=== PATIENT | male | born 1960 | race Two or more races ===

== ENCOUNTER 2021-03-23 05:09 | Inpatient (IN) | payer SELFPAY ==
[2021-03-23] VITALS (38 sets, daily range): BP systolic 62–163; BP diastolic 38–113
[~2021-03-23] VITALS: Ht 172.7 cm; Wt 201.8 kg
--- NOTE | 2021-03-23 05:09 | NUR ---
LUIS E RA FROM HOME FOR SEVERE SOB. PT ON CPAP BY EMS UPON ARRIVAL. PT DYSPNIC, TACHYNEIC UPON ARRIVAL, UNABLE TO SPEAK IN COMPLETE SENTENCES. PT IMMEDIATELY PLACED IN ER GURNEY AND CONNECTED TO MONITOR. DR ARECHIGA AND RT AT BEDSIDE.
--- NOTE | 2021-03-23 05:12 | NUR ---
RT AT BEDSIDE. PT PLACED ON BIPAP 18/5 RR24 FIO2 100%
[2021-03-23] MEDS ORDERED: FUROSEMIDE 40 MG/4 ML VIAL ONE ×2 (05:19→09:03)
[2021-03-23] MEDS ORDERED: NTG 50 MG/D5W250 ML BOTTL 250 ML IV ONE (05:20)
[2021-03-23] MEDS ORDERED: ALBUTEROL FS 2.5 MG/3 ML VIAL.NEB ONE (05:22)
[2021-03-23] MEDS ORDERED: IPRATROPIUM NEB FS 0.5 MG/2.5 ML AMPUL.NEB ONE (05:22)
[2021-03-23] MEDS ORDERED: IPRATROPIUM NEB FS 0.5 MG/2.5 ML AMPUL.NEB NEB ONE (05:30)
[2021-03-23] MEDS ORDERED: FUROSEMIDE 40 MG/4 ML VIAL IV ONE (05:30)
[2021-03-23] MEDS ORDERED: NTG 50 MG/D5W250 ML BOTTL 250 ML IV PRN (05:30)
[2021-03-23] MEDS ORDERED: ASPIRIN 325 MG TABLET PO ONE (05:30)
[2021-03-23] MEDS ORDERED: ALBUTEROL FS 2.5 MG/3 ML VIAL.NEB NEB ONE (05:30)
[2021-03-23] MEDS ORDERED: ASPIRIN 325 MG TABLET ONE (05:33)
[2021-03-23 05:36] LABS: BASOPHILS # (AUTO) 0.1 K/uL (0.0-0.2); BASOPHILS % (AUTO) 0.4 % (0.0-2.0); EOSINOPHILS % (AUTO) 0.1 % (0.0-6.0); HEMATOCRIT 43 % (39-51); HEMOGLOBIN 13.5 g/dL (13.5-17.5); LYMPHOCYTES # (AUTO) 2.4 K/uL (0.8-4.8); LYMPHOCYTES % (AUTO) 13.8 % (20.0-44.0); MEAN CORPUSCULAR HGB CONC 32 g/dl (31.0-36.0); MEAN CORPUSCULAR VOLUME 83 fL (80-96); MONOCYTES # (AUTO) 1.4 K/uL (0.1-1.30); MONOCYTES % (AUTO) 8.2 % (2.0-12.0); NEUTROPHILS # (AUTO) 13.2 K/uL (1.8-8.9); NEUTROPHILS % (AUTO) 77.5 % (43.0-81.0); PLATELET COUNT (AUTO) 378 K/uL (150-450); RED BLOOD CELL COUNT(AUTO) 5.15 MIL/uL (4.5-6.0)
[2021-03-23 05:45] LABS: ABG BASE EXCESS -2.2 mmol/L; ABG OXYGEN SATURATION 97.3 % (92.0-98.5); ABG PCO2 63.3 mmHg (35.0-45.0); ABG PH 7.241 (7.350-7.450); ABG PO2 121.7 mmHg (75.0-100.0); COHb 0.5 % (0.5-1.5); MetHb 0.3 % (0.0-1.5); O2Hb 96.5 % (94.0-97.0); SITE, ABG Left Radial; VENT MODE, BG ST 18/5 24 100%
[2021-03-23] MEDS ORDERED: DILTIAZEM HCL 25 MG IV ONE ×2 (05:57→06:09)
[2021-03-23] MEDS ORDERED: CEFTRIAXONE 1 G VIAL ONE (05:57)
[2021-03-23] MEDS ORDERED: AZITHROMYCIN 500 MG VIAL ONE (05:57)
[2021-03-23] MEDS ORDERED: CEFTRIAXONE 1GM BAG (ER ONLY) 50 ML IV ONE (06:00)
[2021-03-23] MEDS ORDERED: AZITHROMYCIN 500 MG in IV D5W 250 ML IV ONE (06:00)
[2021-03-23] MEDS ORDERED: DILTIAZEM HCL 25 MG IV IV ONE (06:00)
[2021-03-23] MEDS ORDERED: ONDANSETRON HCL/PF 4 MG/2 ML VIAL IV ONE (06:00)
[2021-03-23] MEDS ORDERED: MORPHINE SULFATE INJ 10 MG/ML DISP.SYRIN IV ONE (06:00)
--- NOTE | 2021-03-23 06:00 | NUR ---
MRSA SWAB COLLECTED AND SENT TO LAB. PATIENT'S BELONGINGS LIST DONE.
[2021-03-23 06:01] LABS: CALCIUM, SERUM 8.3 mg/dL (8.5-10.1); CARBON DIOXIDE 30 mmol/L (21-32); CHLORIDE 97 mmol/L (98-107); CREATININE 1.9 mg/dL (0.6-1.3); GLUCOSE 216 mg/dL (74-106); SODIUM SERUM 136 mmol/L (136-145); UREA NITROGEN, BLOOD 27 mg/dL (7-18)
[2021-03-23 06:04] LABS: D-DIMER 3.08 mg/L(FEU (0.17-0.50)
[2021-03-23] MEDS ORDERED: DILTIAZEM HCL 50 MG IV ONE (06:09)
[2021-03-23 06:14] LABS: ALANINE AMINOTRANSFERASE 31 U/L (12-78); ALBUMIN 3.1 g/dL (3.4-5.0); ALKALINE PHOSPHATASE 70 U/L (46-116); ASPARTATE AMINOTRANSFERASE 27 U/L (15-37); BILIRUBIN,DIRECT 0.5 mg/dL (0.0-0.2); BILIRUBIN,TOTAL 0.9 mg/dL (0.2-1.0); TOTAL PROTEIN, SERUM 8.7 g/dL (6.4-8.2)
[2021-03-23] MEDS ORDERED: MORPHINE SULFATE INJ 4 MG/ML DISP.SYRIN ONE (06:19)
[2021-03-23] MEDS: DILTIAZEM HCL IV 125 MG in IV NS 0.9% 100 ML IV PRN ×3 (06:20→06:30)
--- NOTE | 2021-03-23 06:25 | NUR ---
lactic acid 4.3
[2021-03-23] MEDS ORDERED: MORPHINE SULFATE INJ 2 MG/ML DISP.SYRIN IV ONE (06:30)
--- NOTE | 2021-03-23 06:39 | NUR ---
RT NOTE LATE ENTRY. RT CALLED TO BEDSIDE FOR PATIENT COMPLAINING OF SEVERE SOB. PATIENT PLACED ON BIPAP WITH LARGE FACE MASK ON SETTINGS OF S/T 18/5 RR24 FIO2 100% PER MD. PATIENT GIVEN TX. ALARMS ARE SET AND AUDIBLE. BIPAP IS PLUGGED INTO RED OUTLET. WAITING FOR FURTHER ORDERS. EMERGENCY EQUIPMENT AT PATIENT BEDSIDE. Addendum: 03/23/21 at 0643 by JEFFY SALOMON RT Amended: Links added.
[2021-03-23] MEDS ORDERED: ONDANSETRON HCL/PF 4 MG/2 ML VIAL ONE (06:46)
[2021-03-23 06:55] LABS: NEUTROPHILS % (MANUAL) 77 (42-76)
[2021-03-23 06:56] LABS: BAND % (MANUAL) 2 % (0.0-5.0); LYMPHOCYTES % (MANUAL) 18 % (16-48); MONOCYTES % (MANUAL) 3 % (0-11.0)
[2021-03-23] MEDS ORDERED: ONDANSETRON HCL/PF 4 MG/2 ML VIAL IVP PRN (07:00)
[2021-03-23] MEDS ORDERED: DILTIAZEM HCL IV 125 MG in IV NS 0.9% 100 ML IV PRN (07:00)
[2021-03-23] MEDS ORDERED: MAG HYDROX/AL HYDROX/SIMETH 30 ML UDC PO PRN (07:00)
[2021-03-23] MEDS ORDERED: MAGNESIUM HYDROXIDE 30 ML UDC PO PRN (07:00)
[2021-03-23] MEDS ORDERED: CEFTRIAXONE 1 G in IV D5W 50 ML IV SCH (07:00)
[2021-03-23] MEDS ORDERED: ACETAMINOPHEN 325 MG TABLET PO PRN (07:00)
[2021-03-23] MEDS ORDERED: ZOLPIDEM TARTRATE 5 MG TABLET PO PRN (07:00)
[2021-03-23] MEDS ORDERED: Z GUARD REMEDY 2 OZ OINT TP PRN (07:00)
--- NOTE | 2021-03-23 07:30 | NUR ---
Bhargav prajapati in ED - 03/23/21 at 0755 by PUNEET ASSESSED PT ON BED ASLEEP EASILY AROUSABLE, NOT IN RESPIRATORY DISTRESS, V/S STABLE, KEPT RESTED AND COMFORTABLE. WILL CONTINUE TO MONITOR.
[2021-03-23] MEDS ORDERED: METO25TA4 PO (07:46)
[2021-03-23] MEDS ORDERED: ASPI-1169 PO (07:46)
[2021-03-23] MEDS ORDERED: ELVI1TAB3 PO (07:46)
[2021-03-23] MEDS ORDERED: FURO-144 PO (07:46)
[2021-03-23] MEDS ORDERED: POTA-88 PO (07:46)
--- NOTE | 2021-03-23 08:20 | NUR ---
RECEIVED THE PATIENT IN ER BED #8. ON BIPAP. TOLERATING BIPAP WELL. CARDIZEM INFUSING AT 15 MG/HR AND NITRO 15 MCG/MIN. VSS. THE PATIENT ALERT AND ORIENTED X4. ATTACHED TO THE MONITOR. WILL CONTINUE TO MONITOR THE PATIENT.
--- NOTE | 2021-03-23 08:59 | NUR ---
Administered Heparin 5000 unit per order however, unable to document in eMar becuase the order was discontinued after the after administering the medication and before i could document in eMar. The Heparin admin was witnessed by nurse Kevin.
[2021-03-23] MEDS ORDERED: FUROSEMIDE 40 MG/4 ML VIAL IV SCH (09:00)
[2021-03-23] MEDS ORDERED: HEPARIN SODIUM, PORCINE 5000 UNITS/1 ML VIAL SQ SCH (09:00)
[2021-03-23] MEDS ORDERED: ASPIRIN EC 81 MG TABLET.DR PO ONE (09:03)
[2021-03-23] MEDS ORDERED: HEPARIN SODIUM, PORCINE 5000 UNITS/1 ML VIAL ONE (09:03)
[2021-03-23] MEDS ORDERED: PANTOPRAZOLE 40 MG TABLET.DR PO ONE (09:03)
--- NOTE | 2021-03-23 09:17 | NUR ---
RT AT THE BEDSIDE
--- NOTE | 2021-03-23 09:19 | NUR ---
CURRENT SETTINGS ARE RR26 IPAP 18 EPAP 5 FIO2 80% PS 13
[2021-03-23] MEDS: PANTOPRAZOLE 40 MG TABLET.DR PO SCH (09:28)
[2021-03-23] MEDS: ASPIRIN EC 81 MG TABLET.DR PO SCH (09:28)
--- NOTE | 2021-03-23 10:26 | NUR ---
CARDIZEM 15MG/HR INFUSING PER ORDER. VSS . WILL CONTINUE TO MONITOR THE PATIENT.
--- NOTE | 2021-03-23 10:45 | NUR ---
PROGRAM COORDINATOR EXECUTIVE EDUCATION NOTE OBESE PT BROUGHT TO ICU ON BIPAP SETTINGS: 25/5, RATE 12, FIO2 80%, SPO2 HIGH 86-89%, LABORED BREATHING NOTED. RT BEDSIDE. PT A/Ox4, DENIES PAIN, IS ANXIOUS. PT ON BEDSIDE TELE AFIB WITH RVR, ON CARDIZEM DRIP @ 5 MG/HR RUNNING IN RT HAND. PT RT AND LT HAND #20 BOTH FLUSHED AND INTACT. PT SKIN INTACT. BLE CELLULITIS NOTED. PT TAKES OFF BIPAP OCCASIONALLY, PT EDUCATION DONE. ALL PT SAFETY PRECAUTIONS IN PLACE, AWAITING FURTHER ORDERS. MONITORING PT CLOSELY
--- NOTE | 2021-03-23 10:50 | NUR ---
pt. stable bipap changes done per Dr. Escobar order. continue to monitor pt. ABG will be repeated. Addendum: 03/23/21 at 1643 by JOEL HINES RT Amended: Links added.
--- NOTE | 2021-03-23 10:55 | NUR ---
REPORT GIVEN TO NURSE MALDONADO FROM ICU, THE PATIENT IS TRANSFERED TO ASSIGNED ROOM PER ACLS POLICY. Addendum: 03/23/21 at 1102 by LIZZ NURSE MALDONADO IS MADE AWARE THAT LOVENOX WAS GIVEN TODAY
[2021-03-23] MEDS: IPRATROPIUM NEB FS 0.5 MG/2.5 ML AMPUL.NEB NEB SCH ×4 (11:30→23:30)
--- NOTE | 2021-03-23 12:00 | NUR ---
RN NOTE PER DR GALAN, THORACENTESIS TO BE DONE STAT, EVEN WITH HEPARIN BEING GIVEN EARLIER TODAY IN ER. DR GALAN TO DOCUMENT IN [facility] AND SIGN OFF ON PROCEDURE
--- NOTE | 2021-03-23 13:00 | NUR ---
RN NOTE PT TOLERATED THORACENTESIS WELL. 1900cc REMOVED. PLEURAL SPECIMEN TO BE SENT OUT TO LAB FOR CULTURE
--- NOTE | 2021-03-23 13:02 | NUR ---
pt. is always taking off the mask of bipap and non compliant with my instructions. josefina aware @ bedside. Addendum: 03/23/21 at 1307 by PATRICIA CALVILLO RT Amended: Links added.
--- NOTE | 2021-03-23 13:30 | NUR ---
RN NOTE PT JIMMIE PICC INSERTED, FLUSHING WELL WITH BLOOD RETURN
[2021-03-23 13:38] LABS: ABG BASE EXCESS -0.7 mmol/L; ABG OXYGEN SATURATION 96.9 % (92.0-98.5); ABG PCO2 51.8 mmHg (35.0-45.0); ABG PO2 94.6 mmHg (75.0-100.0); AaDO2 421.4 mmHg; COHb 0.3 % (0.5-1.5); MetHb 0.3 % (0.0-1.5); O2Hb 96.3 % (94.0-97.0); SITE, ABG Left Radial; VENT MODE, BG BIPAP 25/5 PS 20
--- NOTE | 2021-03-23 14:00 | NUR ---
RN NOTE PT REPEATEDLY TAKING OFF BIPAP, PT TEACHING CONTINUES. PT A/Ox4, BUT NON-COMPLIANT
--- NOTE | 2021-03-23 16:00 | NUR ---
RN NOTE PT UNABLE TO POSITION HIMSELF WITH OUR HELP IN ORDER TO ALLOW US OF KIDNEYS AND ECHO TO BE PERFORMED.
--- NOTE | 2021-03-23 16:15 | NUR ---
RN NOTE PT HYPOTENSIVE ON CARDIZEM DRIP. DRIP STOPPED, DR COLBY INFORMED AND TOLD TO CONTACT DR MIRANDA. DR MIRANDA TO SEE PT SHORTLY. DR GALAN ORDERED NS 250ML BOLUS, ORDER CARRIED OUT AND PT BP IMPROVED. AWAITING DR MIRANDA TO VISIT PT
[2021-03-23 16:20] LABS: BASOPHILS % (AUTO) 0.3 % (0.0-2.0); EOSINOPHILS % (AUTO) 0.1 % (0.0-6.0); HEMATOCRIT 38 % (39-51); LYMPHOCYTES # (AUTO) 1.4 K/uL (0.8-4.8); LYMPHOCYTES % (AUTO) 9.2 % (20.0-44.0); MEAN CORPUSCULAR HGB CONC 32 g/dl (31.0-36.0); MEAN CORPUSCULAR VOLUME 82 fL (80-96); MONOCYTES # (AUTO) 1.4 K/uL (0.1-1.30); MONOCYTES % (AUTO) 9.3 % (2.0-12.0); NEUTROPHILS # (AUTO) 12.4 K/uL (1.8-8.9); NEUTROPHILS % (AUTO) 81.1 % (43.0-81.0); PLATELET COUNT (AUTO) 267 K/uL (150-450); RED BLOOD CELL COUNT(AUTO) 4.58 MIL/uL (4.5-6.0); WHITE BLOOD COUNT (AUTO) 15.3 K/uL (4.3-11.0)
[2021-03-23 16:48] LABS: BILIRUBIN,URINE MODERATE (NEGATIVE); COLOR,URINE AMBER (YELLOW); LEUKOCYTE ESTERASE ,URINE NEGATIVE (NEGATIVE); NITRITE, URINE NEGATIVE (NEGATIVE); PH,URINE 5.5 (5.0-8.0); PROTEIN,URINE 30 mg/dl (NEGATIVE); UGLUCOSE NEGATIVE (NEGATIVE)
[2021-03-23 16:59] LABS: BACTERIA,URINE 2+ /HPF (None Seen); RBC,URINE 0-2 /HPF (0-2); SQUAMOUS EPITHELIAL CELL,UR Few /HPF (None Seen); WBC,URINE 0-2 /HPF (0-3)
[2021-03-23 17:00] LABS: COARSE GRANULAR CASTS,URINE Few /LPF (None Seen); HYALINE CASTS, URINE Moderate /LPF (None Seen); URINE AMORPHOUS URATE Few /HPF (None Seen)
[2021-03-23] MEDS ORDERED: ENOXAPARIN SODIUM 150 MG/ML DISP.SYRIN SQ SCH (17:00)
[2021-03-23] MEDS ORDERED: ENOXAPARIN SODIUM 100 MG/ML DISP.SYRIN SQ SCH (17:30)
[2021-03-23] MEDS: AMIODARONE 150 MG in IV D5W 100 ML IV ONE ×2 (18:15→18:46)
[2021-03-23] MEDS: AMIODARONE 450 MG in IV D5W 241 ML IV PRN ×2 (18:30→18:42)
--- NOTE | 2021-03-23 18:30 | NUR ---
RN NOTE PT RIPPED OFF BIPAP AND BEGAN YELLING "I WON'T EVER PUT THIS MASK BACK ON! I DON'T CARE IF I !" PT BECAME AGGRESSIVE AND COMBATIVE WITH MYSELF AND IT SERVICE TECHNICIAN SASHA. PT RIPPED OUT RT HAND #20 IV, BLEEDING CONTROLLED. PT EDUCATION ATTEMPTED BY BOTH SASHA AND I TO NO SUCCESS. PT CONTINUES TO REFUSE BIPAP AND CONTINUES TO BE AGGRESSIVE AND NON-COMPLIANT. PT BEING MONITORED CLOSELY. SPO2 77 - 84%
[2021-03-23] MEDS: FUROSEMIDE 20 MG/2 ML VIAL IV SCH (18:43)
--- NOTE | 2021-03-23 19:10 | NUR ---
ASSOCIATE PROFESSOR OF BIOSTATISTICS CLOSING NOTE ALL MEDS GIVEN ORDERED. PT NOW ON AMIO DRIP @ 1MG/MIN PER PROTOCOL. PT NOW PLACED ON NRB 15L, SPO2 97%, NO S/S OF RESP DISTRESS OR SOB. ALL PT SAFETY PRECAUTIONS IN PLACE, NURYS ENDORSED TO LIFE EDUCATOR RN
--- NOTE | 2021-03-23 20:04 | NUR ---
RN NOTE PLEURAL SPECIMEN FROM THORACENTESIS GIVEN TO LAB WAS NOT ENOUGH FOR THE FUNGAL SMEAR. I DISCARDED THE REMAINING PLEURAL FLUID IN BIOHAZARD CONTAINER AND IT HAS BEEN PICKED UP AND DISCARDED OUT OF THE UNIT.
[2021-03-23 20:21] LABS: ABG BASE EXCESS 1.5 mmol/L; ABG OXYGEN SATURATION 94.7 % (92.0-98.5); ABG PCO2 55.1 mmHg (35.0-45.0); ABG PH 7.331 (7.350-7.450); ABG PO2 75.2 mmHg (75.0-100.0); AaDO2 437.4 mmHg; COHb 0.8 % (0.5-1.5); MetHb 0.1 % (0.0-1.5); O2Hb 93.8 % (94.0-97.0); SITE, ABG Right Radial; VENT MODE, BG NRB 15L
--- NOTE | 2021-03-23 20:26 | NUR ---
CLINICAL OB CALL PLACED TO DR LOCKWOOD TO RELAY ABG RESULTS pH 7.331 pCO2 55.1 pO2 75.2 HCO3 28.5 PT TO REMAIN ON NRB 15L; ALSO NOTIFIED THAT THERE WAS NOT SUFFICIENT FLUID FOR AFB/ FUNGAL CULTURE/SMEAR FROM THORACENTESIS.
[2021-03-23 21:50] LABS: BILIRUBIN,URINE MODERATE (NEGATIVE); LEUKOCYTE ESTERASE ,URINE NEGATIVE (NEGATIVE); NITRITE, URINE NEGATIVE (NEGATIVE); PH,URINE 5.5 (5.0-8.0); PROTEIN,URINE 30 mg/dl (NEGATIVE); UGLUCOSE NEGATIVE (NEGATIVE)
[2021-03-23 21:51] LABS: COLOR,URINE AMBER (YELLOW)
[2021-03-23 21:55] LABS: BACTERIA,URINE 2+ /HPF (None Seen); COARSE GRANULAR CASTS,URINE Few /LPF (None Seen); HYALINE CASTS, URINE Moderate /LPF (None Seen); RBC,URINE 0-2 /HPF (0-2); SQUAMOUS EPITHELIAL CELL,UR Few /HPF (None Seen); WBC,URINE 0-2 /HPF (0-3)
[2021-03-23] MEDS: TRAMADOL HCL 50 MG TABLET PO PRN (22:46)
--- NOTE | 2021-03-23 22:46 | NUR ---
CHEMICAL PRODUCTION ENGINEER PT C/O BACK PAIN 02/07 AFTER BEING TRANSFERRED TO BARIATRIC BED. PT GIVEN TRAMADOL AT THIS TIME.
[2021-03-24] VITALS (52 sets, daily range): BP systolic 52–139; BP diastolic 27–91
[2021-03-24] MEDS: IPRATROPIUM NEB FS 0.5 MG/2.5 ML AMPUL.NEB NEB SCH ×6 (00:09→19:06)
--- NOTE | 2021-03-24 01:10 | NUR ---
SUPERVISOR BOTTLE HOUSE CLEANERS EDUCATED PT ON WEANING FROM NRB; PT WANTS TO EAT STATES HE HAS NOT EATEN IN 5 DAYS PT WAS TOLD HE NEEDS TO COME OFF THE NRB BEFORE BEING ABLE TO EAT PT BECOMES AGGRESSIVE AND STARTS HITTING THE BED ADN THROWING HANDS IN THE AIR STATING JUST LEAVE HIS OXYGEN IS STATING HE WAS FINALLY ASLEEP; PT WAS AWAKE. PT TOOK OFF NBR AND WOULD NOT PUT IT BACK ON. UPSET THAT HIS NRB WAS CHANGED FOR THE BREATHING TREATMENT. TOLD PT TO PUT NRB BACK ON PT UPSET. PT ASKED IF NEED BE DOES HE AGREE TO BE INTUBATED HE SAID NO DO NOT INUTBATE ME HE SAID HE TOLSD SOMEONE EARLIER HE SAID NOT TO INTUBATE HIM. S/W DR ACOSTA AND RCD ORDERS FOR DNI.
[2021-03-24] MEDS ORDERED: IV NS 0.9% 250 ML IV PRN (03:30)
[2021-03-24] MEDS: AMIODARONE 450 MG in IV D5W 241 ML IV PRN ×2 (04:30→18:35)
[2021-03-24 04:53] LABS: BASOPHILS # (AUTO) 0.2 K/uL (0.0-0.2); BASOPHILS % (AUTO) 1.2 % (0.0-2.0); CALCIUM, SERUM 8.3 mg/dL (8.5-10.1); CREATININE 1.6 mg/dL (0.6-1.3); EOSINOPHILS % (AUTO) 0.1 % (0.0-6.0); HEMATOCRIT 38 % (39-51); LYMPHOCYTES # (AUTO) 1.1 K/uL (0.8-4.8); LYMPHOCYTES % (AUTO) 7.9 % (20.0-44.0); MAGNESIUM 2.6 mg/dL (1.8-2.4); MEAN CORPUSCULAR HGB CONC 32 g/dl (31.0-36.0); MEAN CORPUSCULAR VOLUME 82 fL (80-96); MONOCYTES # (AUTO) 1.2 K/uL (0.1-1.30); MONOCYTES % (AUTO) 8.9 % (2.0-12.0); NEUTROPHILS # (AUTO) 11.2 K/uL (1.8-8.9); NEUTROPHILS % (AUTO) 81.9 % (43.0-81.0); PHOSPHORUS 4.8 mg/dL (2.5-4.9); PLATELET COUNT (AUTO) 254 K/uL (150-450); POTASSIUM 5.1 mmol/L (3.5-5.1); RED BLOOD CELL COUNT(AUTO) 4.59 MIL/uL (4.5-6.0); WHITE BLOOD COUNT (AUTO) 13.7 K/uL (4.3-11.0)
[2021-03-24] MEDS ORDERED: CEFTRIAXONE 1 G in IV D5W 50 ML IV SCH (05:00)
[2021-03-24 05:02] LABS: THYROID STIMULATING HORMONE 0.215 uIU/mL (0.358-3.74)
[2021-03-24] MEDS: TRAMADOL HCL 50 MG TABLET PO PRN (06:05)
--- NOTE | 2021-03-24 06:25 | NUR ---
TELEPHONE BETTING CLERK ATTEMPTED TO WEAN PT OFF FROM NRB MASK BY PLACING ON NASAL CANNULA; PT NOTED WITH INCREASED HR 150s AND LOW SATURATION. TRIED TO PUT PT ON SIMPLE MASK; PT WANTS NC AT 8L; MULTIPLE ATTEMPTS TO EDUCATE PT ON O2 /MASK WEANING HOWEVER PT BECOMES AGGRESSIVE/ AGIATED. PT STARTS PUNCHING BED AND SWINGING ARMS.
[2021-03-24] MEDS ORDERED: AZITHROMYCIN 500 MG in IV D5W 250 ML IV SCH (07:00)
--- NOTE | 2021-03-24 07:00 | NUR ---
RN NOTES RECEIVED PT ON BE A/Ox3, ON NR MASK AT 15L , O2 SAT 93%, ON TELE A.FIB HR IN 140'S, PT STILL ON AMIO DRIP , PT IS ABLE TO USE URINAL WITH ASSIST , SR UP x3, CALL LIGHT WITHIN EASY REACH, BED LOCKED AND IN LOWEST POSITION, CONTINUE TO MONITOR.
[2021-03-24] MEDS ORDERED: ENOXAPARIN SODIUM 100 MG/ML DISP.SYRIN SQ SCH ×2 (08:00→21:00)
--- NOTE | 2021-03-24 08:19 | NUR ---
WOUND CARE CONSULT: PT PRESENTS WITH SOME DISCOLORATION AND SEVERELY DRY LOWER LEGS WELL REDNESS TO GROIN FOLDS, PERINEUM, PRESENT ON ADMISSION. RECOMMENDATIONS MADE FOR SKIN PROTECTION. DISCUSSED WITH NURSING STAFF. IN AGREEMENT WITH PLAN OF CARE. PT IS ON [employer].
[2021-03-24] MEDS: PANTOPRAZOLE 40 MG TABLET.DR PO SCH (08:34)
[2021-03-24] MEDS: FUROSEMIDE 20 MG/2 ML VIAL IV SCH (08:34)
[2021-03-24] MEDS: ASPIRIN EC 81 MG TABLET.DR PO SCH (08:34)
[2021-03-24] MEDS ORDERED: MINERAL OIL/PETROLATUM,WHITE 120 GM JAR TP SCH (09:00)
--- NOTE | 2021-03-24 09:15 | NUR ---
RN NOTES PT IS LETHARGIC , DOES NOT FOLLOW COMMAND, EYES ARE CLOSED, NON VERBAL , DR GALAN AT THE BEDSIDE, SPOKEN TO PT'S BROTHER ON THE PHONE. PT BOTHER( PARISA) REQUESTING INTUBATION AT THIS TIME . ORDER RECEIVED FROM DR GALAN TO INCUBATED THE PT. ER DOCTOR AND NURSING FLANGER NOTIFIED.
[2021-03-24] MEDS ORDERED: PROPOFOL 100 ML IV PRN (09:30)
--- NOTE | 2021-03-24 09:30 | NUR ---
RT PATIENT ORALLY INTUBATED BY DR RICH WITH A 7.5 ETT SECURED AT 26CM AT THE LIP. CPR INITIATED POST INTUBATION WITH SUCCESSFUL ROSC. PATIENT PLACED ON [facility] VENT WITH ORDERED SETTINGS PER DR GALAN. ALARMS CHECKED + AUDIBLE. VENT PLUGGED INTO RED OUTLET. AMBU BAG AT HOB. Addendum: 03/24/21 at 1000 by JAC ALMEIDA RT Amended: Links added.
--- NOTE | 2021-03-24 09:30 | NUR ---
RN NOTES PT CODED DURING INTUBATION , PLEASE SEE CODE BLUE SHEET FORM.
[2021-03-24] MEDS: PHENYLEPHRINE 50 MG in IV NS 0.9% 245 ML IV PRN ×3 (10:15→13:05)
[2021-03-24 10:22] LABS: ABG BASE EXCESS -4.5 mmol/L; ABG OXYGEN SATURATION 85.4 % (92.0-98.5); ABG PCO2 63.5 mmHg (35.0-45.0); ABG PH 7.206 (7.350-7.450); ABG PO2 55.1 mmHg (75.0-100.0); AaDO2 594.4 mmHg; COHb 0.8 % (0.5-1.5); MetHb 0.1 % (0.0-1.5); O2Hb 84.6 % (94.0-97.0); SITE, ABG Left Brachial
[2021-03-24] MEDS ORDERED: VANCOMYCIN HCL 1 GM in IV D5W 260 ML IV ONE (10:30)
[2021-03-24] MEDS ORDERED: SODIUM BICARBONATE SYR 50 MEQ/50 ML DISP.SYRIN IV ONE (10:33)
[2021-03-24] MEDS ORDERED: EPINEPHRINE (1:10,000) SYRINGE 1 MG/10 ML DISP.SYRIN IVP ONE (10:33)
[2021-03-24] MEDS ORDERED: FEE EMEERGENCY 1 MIN EA MC ONE (10:33)
[2021-03-24] MEDS: CLOTRIMAZOLE 1% 15 GM TUBE TP SCH ×2 (10:35→16:18)
[2021-03-24] MEDS ORDERED: CEFEPIME 2 GM in IV D5W 100 ML IV SCH (11:00)
--- NOTE | 2021-03-24 11:00 | NUR ---
RN NOTES PT'S BROTHER AT THE BEDSIDE VISITING THE PT AND REQUESTING DNR STATUS . BRISEYDA VERGARA COMMERCIAL ENERGY RATER NOTIFIED , DNR ORDER RECEIVED PER COMMERCIAL ENERGY RATER ORDER .
[2021-03-24] MEDS ORDERED: VANCOMYCIN 2 GM in IV D5W 500 ML IV ONE (11:30)
--- NOTE | 2021-03-24 11:45 | NUR ---
RN NOTES PT BP STILL LOW , DR GALAN NOTIFED, ORDER RECEIVED FOR SECOND PRESSORS .
[2021-03-24] MEDS: NOREPINEPHRINE 32 MG in IV NS 0.9% 218 ML IV PRN ×2 (11:58→18:33)
[2021-03-24] MEDS ORDERED: ATROPINE SULFATE 1 MG/10 ML DISP.SYRIN IV ONE ×2 (12:36→20:39)
[2021-03-24] MEDS ORDERED: SUCCINYLCHOLINE CHLORIDE 20 MG/ML VIAL IV ONE (12:36)
[2021-03-24] MEDS ORDERED: ETOMIDATE 2 MG/ML VIAL IV ONE (12:36)
[2021-03-24] MEDS ORDERED: DIGOXIN INJ 0.5 MG/2 ML AMPUL IV STA (13:17)
[2021-03-24] MEDS ORDERED: IV NS 0.9% 500 ML IV ONE (13:30)
[2021-03-24] MEDS: PHENYLEPHRINE 100 MG in IV NS 0.9% 240 ML IV PRN ×2 (14:22→19:00)
--- NOTE | 2021-03-24 16:49 | NUR ---
RN NOTES O2 SAT DROPPING DOWN , UNABLE TO GET BP , HR IN 170'S, PT ON VENT , AND INTUBATED, DR GALAN NOITFED, PEEP INCREASED TO 5 PER MD ORDER , PT ON HIS LEFT SIDE PER DR GALAN ORDER, PT SISTER AND BROTHER NOITFED REGARDING PT STAUTS. PT IS DNR PER FAMILY REQUEST, CONTINUE TO MONITOR .
--- NOTE | 2021-03-24 17:59 | NUR ---
RN NOTES PT'S BROTHER AT THE BEDSIDE, HR IN 200'S , UNABLE TO GET BLOOD PRESSURE , O2 SAT IN 20'S , BRISEYDA VERGARA ACCOUNT CLERK NOTIFIED, PT IS DNR AT THIS TIME.
--- NOTE | 2021-03-24 18:27 | NUR ---
RN NOTES PT'S BELONGING GIVEN TO PT'S BROTHER ( PARISA).
[2021-03-24] MEDS ORDERED: DIGOXIN INJ 0.5 MG/2 ML AMPUL IV ONE (19:00)
--- NOTE | 2021-03-24 19:10 | NUR ---
RN NOTES STILL UNABLE TO GET BLOOD PRESSURE , HR IN 180'S, O2 SAT IN 40'S, PT ON LEVO AT 1 MCG/KG/MIN. AMIO AT .5 MG/MIN , KESHAV AT 3 MCG/KG/MIN RUNNING AT THIS TIME, PT IS DNR , WILL ENDORSE TO APPLICATIONS ADMINISTRATOR NURSE FOR CONTINUITY OF CARE
--- NOTE | 2021-03-24 19:14 | NUR ---
RT NOTE RECEIVED PT ON PEEP +5. JOSE SANON IS AWARE. MD GALAN WITH VENT ORDER CHANGE.
--- NOTE | 2021-03-24 19:15 | NUR ---
RT NOTE TX NOT GIVEN DUE TO HIGH HEART RATE. RN AWARE.
--- NOTE | 2021-03-24 19:30 | NUR ---
RN NOTES RECEIVED PATIENT HEMODYNAMICALLY UNSTABLE ORALLY INTUBATED WITH ETT 7.5 AND 26 CM AT LIPLINE WITH VENT SETTING AC 28 TV 550 FIO2 100% PEEP 5. UNRESPONSIVE. PUPILS DILATED AND FIXED. SVT HR 180'S ON MONITOR. PT IS DNR. WITH IV RUNNING WITH AMIODARONE DRIP @ 0.5 MG/MIN, KESHAV @ 3MCG/KG/MIN AND LEVOPHED @ 1 MCG/KG/MIN. UNABLE TO READ BLOOD PRESSURE, SATURATION, REMAINED SVT DESPITE OF ALL DRIPS. FAMILY IS AWARE ABOUT THE PATIEN STATUS. CONTINUE ALL MEDS WILL CONTINUE TO MONITOR.
--- NOTE | 2021-03-24 21:00 | NUR ---
RN NOTES 2039 PM - PATIENT PRONOUNCE BY CHARGE NURSE ELI. PATIENT IS ASYSTOLE ON MONITOR, PUPIL FIXED AND DILATED , NO PULSES ON EXT. UNABLE TO READ VS. 2044 PM - ADMITTING JANIS AND RN INTERNATIONAL DOMENICA GOT INFORMED. 2049 PM - TERESA BROTHER AND HAILY SISTER CALLED AND INFORMED. INFORMED THE BROTHER ABOUOT THE SILVER NECKLACE AND HE WILL COME IN THE MORNING TO ELECTRODE CLEANING MACHINE OPERATOR THE NECKLACE. 2054 PM - MEGHANA BROTHER CAME AND VISIT THE PATIENT FOR THE LAST TIME. 2099 PM - [facility] [employer] CALLED SPOKE TO CARLA CASE # [id number] - [phone] GIVEN AND GIVE OK TO RELEASE THE BODY.
--- NOTE | 2021-03-24 21:11 | NUR ---
RN/ICU-PRONOUNCEMENT OF :CODE STATUS:DO NOT RESUSCITATE. PT. UNRESPONSIVE TO ANY FORM OF STIMULI. PUPILS ARE FIXED AND DILATED. NO RODRÍGUEZ. EKG ASYSTOLE X2 LEADS. PERIPHERAL PULSES ARE ABSENT,W/ ABSENT HEART TONES. PT. APNEIC, RR-0. PT. PRONOUNCED AT 2039. BY:ELI GARZA
--- NOTE | 2021-03-24 22:24 | NUR ---
RN/ICU- BODY PICKED UP BY [employer].
[2021-03-25 06:06] LABS: *BASOS 0 % (Not Estab.); *EOS 0 % (Not Estab.); *HCT 39.1 % (37.5-51.0); *HGB 12.4 g/dL (13.0-17.7); *IMMATURE GRANULOCYTES 1 % (Not Estab.); *IMMATURE GRANULOCYTES(ABS) 0.1 x10E3/uL (0.0-0.1); *LYMPHOCYTES 9 % (Not Estab.); *LYMPHS, ABSOLUTE 1.4 x10E3/uL (0.7-3.1); *MCHC 31.7 g/dL (31.5-35.7); *MCV 82 fL (79-97); *MONOCYTES 10 % (Not Estab.); *MONOS, ABSOLUTE 1.5 x10E3/uL (0.1-0.9); *NEUTROPHILS 80 % (Not Estab.); *NEUTROPHILS, ABSOLUTE 11.9 x10E3/uL (1.4-7.0); *PLT 282 x10E3/uL (150-450); *RBC 4.77 x10E6/uL (4.14-5.80); *RDW 14.3 % (11.6-15.4)
[2021-03-25] MEDS ORDERED: VANCOMYCIN 2 GM in IV D5W 500 ML IV SCH (11:00)
--- NOTE | 2021-03-25 11:27 | NUR ---
Printing Roller Handler note: Printing Roller Handler consultation received on 03/24/21 for code status, non-compliance/aggressive behavior. Patient on 03/24/21 before social and political studies professor was able to complete the consultation.
[2021-03-25 14:07] LABS: *% CD 4 POS. LYMPH 32.1 % (30.8-58.5); *% CD 8 POS. LYMPH 44.7 % (12.0-35.5); *ABSOLUTE CD 4 HELPER 449 /uL (359-1519); *ABSOLUTE CD 8 SUPPRESSOR 626 /uL (109-897); *CD4/CD8 RATIO 0.72 (0.92-3.72)
--- NOTE | 2021-03-27 11:28 | NUR ---
Telecommunicator note: Telecommunicator consultation received late-afternoon on 03/25/21 for alcoholism. Patient was discharged from the hospital on 03/26/21; drug abuse social worker consultation was not completed due to patient being discharged.
== END 2021-03-24 20:40 | DRG 871 ==
LOC: ER 05:11 → EDBD 05:11 → ICU 07:56
PROVIDERS: ADMIT Internal Medicine; ATTEND Registered Nurse
PROC: 5A09357 Assistance with Respiratory Ventilation, Less than 24 Consecutive Hours, Continuous Positive Airway Pressure (ICD-10-PCS; principal; 2021-03-23)
PROC: 0W993ZZ Drainage of Right Pleural Cavity, Percutaneous Approach (ICD-10-PCS; 2021-03-23)
PROC: 02HV33Z Insertion of Infusion Device into Superior Vena Cava, Percutaneous Approach (ICD-10-PCS; 2021-03-23)
PROC: B548ZZA Ultrasonography of Superior Vena Cava, Guidance (ICD-10-PCS; 2021-03-23)
PROC: 5A1935Z Respiratory Ventilation, Less than 24 Consecutive Hours (ICD-10-PCS; 2021-03-24)
PROC: 0BH17EZ Insertion of Endotracheal Airway into Trachea, Via Natural or Artificial Opening (ICD-10-PCS; 2021-03-24)
PROC: 5A2204Z Restoration of Cardiac Rhythm, Single (ICD-10-PCS; 2021-03-24)
DX: A41.9 Sepsis, unspecified organism (principal); E43 Unspecified severe protein-calorie malnutrition; N17.0 Acute kidney failure with tubular necrosis; J96.21 Acute and chronic respiratory failure with hypoxia; I50.33 Acute on chronic diastolic (congestive) heart failure; J96.22 Acute and chronic respiratory failure with hypercapnia; J15.9 Unspecified bacterial pneumonia; Z68.44 Body mass index [BMI] 60.0-69.9, adult; E66.2 Morbid (severe) obesity with alveolar hypoventilation; E87.2 Acidosis; G93.1 Anoxic brain damage, not elsewhere classified; I11.0 Hypertensive heart disease with heart failure; Z20.822 Contact with and (suspected) exposure to COVID-19; Z66 Do not resuscitate; Z95.0 Presence of cardiac pacemaker; E11.65 Type 2 diabetes mellitus with hyperglycemia; I48.91 Unspecified atrial fibrillation; I46.9 Cardiac arrest, cause unspecified; I95.9 Hypotension, unspecified
CPT/HCPCS: 31720; 36415; 36569; 36600; 71045-TC; 76770-TC; 80048-TC; 80061-TC; 80076-TC; 81001; 82570-TC; 82803-TC; 82962-TC; 83605-TC; 83735-TC; 83880; 84100-TC; 84155-TC; 84443-TC; 84484-TC; 85025-TC; 85378-TC; 85730-TC; 86360; 87040-TC; 87070-TC; 87075-TC; 87081-TC; 87086-TC; 89051-TC; 92950-TC; 93307-TC; 94002-TC; 94003-TC; 94799-TC; 99082-TC; C9803; G0378; J0171; J0282; J0330; J0456; J0461; J0692; J0696; J1160; J1644; J1650; J1940; J2270; J2370; J2405; J3370; J3490; J7030; J7040; J7050; J7060